=== PATIENT | male | born 1960 | race Caucasian/White ===

== ENCOUNTER → 2016-06-16 | Outpatient (CLI) | payer BC ==
[~2016-06-16] MED LIST: ASPI81TA28 PO; CLON0.2T11 PO; LISI1TAB3 PO; MULT-506 PO; OMEG10007 PO; OXYC-57 PO; PRAV20TA PO
== END | disposition home or self-care (01) ==
LOC: C.CPL 17:43
PROVIDERS: ATTEND Orthopaedic Surgery
DX: Z01.810 Encounter for preprocedural cardiovascular examination (principal)